=== PATIENT | male | born 1995 | race Caucasian/White ===

== ENCOUNTER 2017-10-21 09:10 | Emergency (ER) | payer SELFPAY ==
[2017-10-21] MEDS: Sodium Chloride 0.9% 1,000 ML IV ONE (09:42)
[2017-10-21] MEDS: Ketorolac 30 MG/ML SDV IVPUSH ONE (09:42)
--- NOTE | 2017-10-21 09:56 | EDM.PDOC ---
ED HPI GENERAL MEDICAL PROBLEM - General Chief Complaint: Flank Pain Stated Complaint: PAIN IN SIDE Time Seen by Provider: 10/21/17 09:30 Source of Information: Reports: Patient History Limitations: Reports: No Limitations - History of Present Illness INITIAL COMMENTS - FREE TEXT/NARRATIVE: 21 yo WM presents to ER complaining of sudden onset right flank pain. Pt reports pain came on suddenly and is sharp in character. Pt reports history of kidney stone approx 5 years ago. Pt denies any fever/chills, nausea/vomiting, dysuria or hematuria. Pt denies any worsening pain with movement. Onset: Sudden Location: Reports: Back Quality: Reports: Sharp, Stabbing Severity: Moderate Improves with: Reports: None Worsens with: Reports: None Associated Symptoms: Reports: No Other Symptoms Right Flank Pain Score (Numeric/FACES): 9 - Related Data Allergies Allergy/AdvReac Type Severity Reaction Status Date / Time No Known Drug Allergies Allergy Cannot Verified 10/21/17 09:41 Remember Home Meds: Home Meds Cyclobenzaprine [Flexeril] 10 mg PO TID PRN #15 tab 10/21/17 [Rx] Prednisone [IMW: predniSONE] 20 mg PO WITHBREAKFAST #15 tab 10/21/17 [Rx] traMADol [Ultram] 50 mg PO Q4H PRN #15 tab 10/21/17 [Rx] ED ROS GENERAL - Review of Systems Review Of Systems: See Below Constitutional: Reports: No Symptoms HEENT: Reports: No Symptoms Respiratory: Reports: No Symptoms Cardiovascular: Reports: No Symptoms Endocrine: Reports: No Symptoms GI/Abdominal: Reports: No Symptoms : Reports: No Symptoms Musculoskeletal: Reports: Back Pain Skin: Reports: No Symptoms Neurological: Reports: No Symptoms Psychiatric: Reports: No Symptoms Hematologic/Lymphatic: Reports: No Symptoms Immunologic: Reports: No Symptoms ED EXAM, RENAL/ - Physical Exam Exam: See Below Exam Limited By: No Limitations General Appearance: Alert, WD/WN, Mild Distress Throat/Mouth: Normal Inspection, Normal Lips, Normal Teeth, Normal Gums, Normal Oropharynx, Normal Voice, No Airway Compromise Head: Atraumatic, Normocephalic Neck: Normal Inspection, Supple, Non-Tender, Full Range of Motion Respiratory/Chest: No Respiratory Distress, Lungs Clear, Normal Breath Sounds, No Accessory Muscle Use, Chest Non-Tender Cardiovascular: Normal Peripheral Pulses, Regular Rate, Rhythm, No Edema, No Gallop, No JVD, No Murmur, No Rub GI/Abdominal: Normal Bowel Sounds, Soft, Non-Tender, No Organomegaly, No Distention, No Abnormal Bruit, No Mass Back Exam: Normal Inspection, Full Range of Motion, CVA Tenderness (R) Extremities: Normal Inspection, Normal Range of Motion, Non-Tender, Normal Capillary Refill, No Pedal Edema Neurological: Alert, Oriented, CN II-XII Intact, Normal Cognition, Normal Gait, Normal Reflexes, No Motor/Sensory Deficits Psychiatric: Normal Affect, Normal Mood Skin Exam: Warm, Dry, Intact, Normal Color, No Rash Lymphatic: No Adenopathy Course - Vital Signs Last Recorded V/S: Last Vital Signs Temp 37.2 C 10/21/17 09:38 Pulse 76 10/21/17 09:38 Resp 16 10/21/17 09:38 BP 129/61 10/21/17 09:38 Pulse Ox 96 10/21/17 09:38 - Orders/Labs/Meds Orders: Active Orders 24 hr Category Date Time Status Abdomen Pelvis wo Cont [CT] Stat Exams 10/21/17 09:48 Taken URINALYSIS W/MICROSCOPIC [UA W/MICROSCOPIC] [URIN] Stat Lab 10/21/17 09:43 Ordered Sodium Chloride 0.9% [Normal Saline] 1,000 ml Med 10/21/17 09:42 Active IV .BOLUS Medication Orders Sodium Chloride (Normal Saline) 1,000 mls @ 999 mls/hr IV .BOLUS ONE Stop: 10/21/17 10:42 Labs: Laboratory Tests 10/21/17 10/21/17 10/21/17 Range/Units 09:26 09:26 10:14 WBC 8.2 (5.0-10.0) 10^3/uL RBC 5.71 (4.50-6.00) 10^6/uL Hgb 16.6 (13.0-17.0) g/dL Hct 51.4 (40.0-52.0) % MCV 90.0 (82.0-92.0) fL MCH 29.1 (27.0-31.0) pg MCHC 32.4 (32.0-36.0) g/dL RDW 13.0 (11.5-14.5) % Plt Count 211 (150-300) 10^3/uL MPV 8.1 (7.4-10.4) fL Neut % (Auto) 65.8 (50.0-70.0) % Lymph % (Auto) 24.3 (20.0-40.0) % [place] % (Auto) 6.3 (2.0-8.0) % Eos % (Auto) 2.6 (1.0-3.0) % Baso % (Auto) 1.0 (0.0-1.0) % Neut # (Auto) 5.4 (2.5-7.0) 10^3/uL Lymph # (Auto) 2.0 (1.0-4.0) 10^3/uL [place] # (Auto) 0.5 (0.1-0.8) 10^3/uL Eos # (Auto) 0.2 (0.1-0.3) 10^3/uL Baso # (Auto) 0.1 (0.0-0.1) 10^3/uL Sodium 140 (136-145) mmol/L Potassium 4.0 (3.3-5.3) mmol/L Chloride 102 (98-115) mmol/L Carbon Dioxide 26.0 (21.0-32.0) mmol/L BUN 17 (6-25) mg/dL Creatinine 0.82 (0.51-1.17) mg/dL Est Cr Clr Drug Dosing 145.90 mL/min Estimated GFR (MDRD) > 60 mL/min Glucose 104 (70-110) mg/dL Calcium 9.5 (8.7-10.3) mg/dL Specimen Type Urinvoid Urine Color Yellow (YELLOW) Urine Appearance Clear (CLEAR) Urine pH 7.0 (5.0-9.0) Ur Specific [place] 1.020 (1.005-1.030) Urine Protein Negative (NEGATIVE) mg/dL Urine Glucose (UA) Negative (NEGATIVE) mg/dL Urine Ketones Negative (NEGATIVE) mg/dL Urine Occult Blood Negative (NEGATIVE) Urine Nitrite Negative (NEGATIVE) Urine Bilirubin Negative (NEGATIVE) Urine Urobilinogen 0.2 (0.2-1.0) E.U./dL Ur Leukocyte Esterase Negative (NEGATIVE) Urine RBC 0-5 /HPF Urine WBC 0-5 /HPF Ur Epithelial Cells Few /LPF Urine Bacteria Few (NONE TO FEW) /HPF Meds: Medications Generic Name Dose Route Start Last Admin Trade Name Freq PRN Reason Stop Dose Admin Sodium Chloride 1,000 mls @ 999 mls/hr 10/21/17 09:42 Normal Saline IV 10/21/17 10:42 .BOLUS ONE Discontinued Medications Generic Name Dose Route Start Last Admin Trade Name Freq PRN Reason Stop Dose Admin Hydromorphone HCl 0.5 mg 10/21/17 10:10 Dilaudid IVPUSH 10/21/17 10:11 ONETIME ONE Ketorolac Tromethamine 30 mg 10/21/17 09:42 Toradol IVPUSH 10/21/17 09:43 ONETIME ONE Ondansetron HCl 4 mg 10/21/17 10:10 Zofran IVPUSH 10/21/17 10:11 ONETIME ONE - Radiology Interpretation Free Text/Narrative:: CT abd/pelvis- NAD Departure - Departure Time of Disposition: 10:43 Disposition: Home, Self-Care 01 Condition: Good Clinical Impression: Lumbar strain Qualifiers: Encounter type: initial encounter Qualified Code(s): S39.012A - Strain of muscle, fascia and tendon of lower back, initial encounter - Discharge Information Prescriptions: Cyclobenzaprine [Flexeril] 10 mg PO TID PRN #15 tab PRN Reason: Pain Prednisone [IMW: predniSONE] 20 mg PO WITHBREAKFAST #15 tab traMADol [Ultram] 50 mg PO Q4H PRN #15 tab PRN Reason: Pain Instructions: Flank Pain, [id number], Back Pain, Adult Referrals: PCP,None [Primary Care Provider] - Padmini Montiel MD [Physician] - Forms: ED Department Discharge Additional Instructions: 1. discharge home 2. prednisone 60mg PO QD x 5 days 3. flexeril 10mg PO Q8 4. ultram 50mg PO Q6 PRN pain 5. follow up in clinic for further evaluation and treatment 6. return to ER for worsening symptoms - My Orders Last 24 Hours: My Active Orders 10/21/17 09:42 Sodium Chloride 0.9% [Normal Saline] 1,000 ml IV .BOLUS 10/21/17 09:43 URINALYSIS W/MICROSCOPIC [UA W/MICROSCOPIC] [URIN] Stat 10/21/17 09:48 Abdomen Pelvis wo Cont [CT] Stat - Assessment/Plan Last 24 Hours: My Active Orders 10/21/17 09:42 Sodium Chloride 0.9% [Normal Saline] 1,000 ml IV .BOLUS 10/21/17 09:43 URINALYSIS W/MICROSCOPIC [UA W/MICROSCOPIC] [URIN] Stat 10/21/17 09:48 Abdomen Pelvis wo Cont [CT] Stat Assessment:: 1. low back pain Plan: 1. discharge home 2. prednisone 60mg PO QD x 5 days 3. flexeril 10mg PO Q8 4. ultram 50mg PO Q6 PRN pain 5. follow up in clinic for further evaluation and treatment 6. return to ER for worsening symptoms
[2017-10-21 10:06] LABS: CHLORIDE,CL 102 mmol/L (98-115); SODIUM,NA 140 mmol/L (136-145)
[2017-10-21] MEDS: Ondansetron 4 MG/2 ML SDV IVPUSH ONE (10:10)
[2017-10-21] MEDS ORDERED: HYDROmorphone 1 MG/ML Syringe IV ONE (10:11)
[2017-10-21] MEDS: HYDROmorphone 1 MG/ML Syringe IVPUSH ONE (10:11)
== END 2017-10-21 11:00 | disposition home or self-care (01) ==
LOC: KA.ED 09:10
DX: S39.012A Strain of muscle, fascia and tendon of lower back, initial encounter (principal); X58.XXXA Exposure to other specified factors, initial encounter
CPT/HCPCS: 36415; 74176; 80048; 81001; 85025; 96361; 96374; 96375; 99284; J1170; J1885; J2405; J7030